=== PATIENT | female | born 1980 | race Caucasian/White ===

== ENCOUNTER 2018-12-12 10:37 | Emergency (ER) | payer OTHER ==
--- NOTE | 2018-12-12 12:35 | ED ---
Abdominal Pain/Female - HPI Summary HPI Summary: This patient is a 38 year old F presenting to [facility] accompanied by a male with a chief complaint of left flank that radiates to left ABD and lower back starting 3 days ago. She states the symptoms started after she began preparing for her endo/colonoscopy. She complains of black tarry stools with no blood. The patient rates the pain 10/10 in severity. Symptoms aggravated by nothing. Symptoms alleviated by nothing. The patient reported a fever and chills beginning 3 days ago as well as N/V/D beginning 2 days ago. She cancelled her tests due to her sickness. Patient reports decreased appetite, neck pain, lightheadedness, and RODRIGUEZ. She smokes and drinks, but denies drug use. She has FHx of diabetes and HTN from her father. She has no significant past MHx. - History of Current Complaint Chief Complaint: EDAbdPain Stated Complaint: LOW BACK PAIN FEVER PER PT Time Seen by Provider: 12/12/18 11:50 Hx Obtained From: Patient, Family/Shirt Trimmer - Onset/Duration: Lasting Days - 3, Still Present Timing: Days - 3 Severity Currently: Severe Pain Intensity: 10 Pain Scale Used: 0-10 Numeric Location: Flank - left Radiates: Yes Radiates to: Back, LLQ Aggravating Factor(s): Nothing Alleviating Factor(s): Nothing Associated Signs and Symptoms: Positive: Fever, Back Pain, Decreased Appetite, Nausea, Vomiting, Diarrhea, Other: - neck pain, lightheadedness. Negative: Blood in Stool Allergies/Adverse Reactions: Allergies Allergy/AdvReac Type Severity Reaction Status Date / Time Penicillins Allergy Swelling Verified 12/12/18 10:47 Home Medications: Home Medications RX: Cetirizine* [ZyrTEC 10 MG TAB*] 10 mg PO DAILY PRN 12/12/18 [History Confirmed 12/12/18] RX: Desvenlafaxine (NF) [Pristiq (NF)] 50 mg PO DAILY 12/12/18 [History Confirmed 12/12/18] RX: Escitalopram * [Lexapro *] 20 mg PO DAILY 12/12/18 [History Confirmed ] RX: Fexofenadine (NF) [Aicha 180 (NF)] 180 mg PO DAILY PRN 12/12/18 [History Confirmed 12/12/18] RX: OLANzapine TAB* [Zyprexa 10 MG TAB*] 15 mg PO DAILY 12/12/18 [History Confirmed 12/12/18] RX: Omeprazole (Nf) [Prilosec (NF)] 40 mg PO DAILY 12/12/18 [History Confirmed 12/12/18] RX: Prazosin CAP* [Minipress CAP*] 3 mg PO DAILY 12/12/18 [History Confirmed ] PMH/Surg Hx/FS Hx/Imm Hx Previously Healthy: No Endocrine/Hematology History: Denies: Hx Diabetes Cardiovascular History: Denies: Hx Hypercholesterolemia, Hx Hypertension Sensory History: Denies: Hx Legally Blind EENT History: Denies: Hx Deafness - Surgical History Surgical History: None Surgery Procedure, Year, and Place: none Infectious Disease History: No Infectious Disease History: Denies: Traveled Outside the [place] in Last 30 Days - Family History Known Family History: Positive: Hypertension - father has it, Diabetes - father has it - Social History Alcohol Use: Occasionally Hx Substance Use: No Substance Use Type: Reports: None Hx Tobacco Use: Yes Smoking Status (MU): Heavy Every Day Tobacco Smoker Review of Systems Positive: Fever, Chills Gastrointestinal: Other - decreased appetite Positive: Abdominal Pain - LLQ, Vomiting, Diarrhea, Nausea, Other - negative - blood in stool Positive: flank pain - left Positive: Other - low back and neck pain Neurological: Other - lightheadedness Positive: Headache All Other Systems Reviewed And Are Negative: Yes Physical Exam - Summary Physical Exam Summary: VITAL SIGNS: Reviewed. GENERAL: Patient is a well-developed and nourished FEMALE who is lying comfortable in the stretcher. Patient is not in any acute respiratory distress. HEAD AND FACE: No signs of trauma. No ecchymosis, hematomas or skull depressions. No sinus tenderness. EYES: PERRLA, EOMI x 2, No injected conjunctiva, no nystagmus. EARS: Hearing grossly intact. Ear canals and tympanic membranes are within normal limits. MOUTH: Oropharynx within normal limits. NECK: Supple, trachea is midline, no adenopathy, no JVD, no carotid bruit, no c- spine tenderness, neck with full ROM. CHEST: Symmetric, no tenderness at palpation LUNGS: Clear to auscultation bilaterally. No wheezing or crackles. CVS: Regular rate and rhythm, S1 and S2 present, no murmurs or gallops appreciated. ABDOMEN: Soft, left costovertebral tenderness. No signs of distention. No rebound no guarding, and no masses palpated. Bowel sounds are normal. EXTREMITIES: FROM in all major joints, no edema, no cyanosis or clubbing. NEURO: Alert and oriented x 3. No acute neurological deficits. Speech is normal and follows commands. SKIN: Dry and warm. Triage Information Reviewed: Yes Vital Signs On Initial Exam: Initial Vitals Temp Pulse Resp BP Pulse Ox 100.4 F 132 18 114/69 96 12/12/18 10:43 12/12/18 10:43 12/12/18 10:43 12/12/18 10:43 12/12/18 10:43 Vital Signs Reviewed: Yes Diagnostics - Vital Signs Vital Signs Temp Pulse Resp BP Pulse Ox 12/12/18 12:00 100 96 12/12/18 11:49 101 115/69 96 12/12/18 11:48 100 96 12/12/18 10:43 100.4 F 132 18 114/69 96 - Laboratory Result Diagrams: 12/12/18 12:58 12/12/18 12:58 Lab Statement: Any lab studies that have been ordered have been reviewed, and results considered in the medical decision making process. - CT ABD/PELVIS CT Interpretation Completed By: Radiologist Summary of CT Findings: IMPRESSION: 1. MINIMAL PERINEPHRIC STRANDING ON THE LEFT WITHOUT APPRECIABLE HYDRONEPHROSIS OR. NEPHROLITHIASIS. 2. HEPATOMEGALY WITH FATTY INFILTRATION OF THE LIVER. These findings were reviewed by Dr. Pink. Re-Evaluation - Re-Evaluation First Eval Re-Evaluation Time: 14:45 Comment: I discussed findings with the patient. Patient is agreeable to being discharged home. Abdominal Pain Fem Course/Dx - Course Course Of Treatment: This patient is a 38 year old F presenting to [facility] accompanied by a male with a chief complaint of left flank that radiates to left ABD and lower back starting 3 days ago. She states the symptoms started after she began preparing for her endo/colonoscopy. She complains of black tarry stools with no blood. The patient rates the pain 10/10 in severity. Symptoms aggravated by nothing. Symptoms alleviated by nothing. The patient reported a fever and chills beginning 3 days ago as well as N/V/D beginning 2 days ago. She cancelled her tests due to her sickness. Patient reports decreased appetite, neck pain, lightheadedness, and RODRIGUEZ. She smokes and drinks, but denies drug use. She has FHx of diabetes and HTN from her father. She has no significant past MHx. Blood work without any significant abnormality except for WBCs of 16.8, sodium of 131, potassium of 3, chloride of 97, anion gap of 12 , glucose of 174, total bili of 1.2, AST of 41, CRP of 395, test is negative. Urinalysis is positive for UTI. In the ED course, the patient was given IV fluids, Tylenol for fever, and she was started on Rocephin since the patient has a UTI, which is probably the cause of her symptoms. After the patient was given medications, the patients symptoms have improved. The patient will be discharged home with follow-up with primary care physician in the next 2-3 days. The patient will be given a prescription for Bactrim. Abdominopelvic CT impression: Minimal perinephric stranding of the left without appreciable hydronephrosis or nephrolithiasis. Hepatomegaly with fatty infiltration of the liver. I discussed all the findings and test results with the patient. Patient was instructed to return to the emergency room immediately if any of the symptoms return or worsens. Plan of care was discussed with the patient. Patient understands and agrees. All questions were answered to the patients satisfaction. There were no further complaints or concerns. Lung exam before discharge: CTA B/L. Good air exchange. No wheezing or crackles heard. CVS: S1 and S2 present. No murmurs appreciated. Patient is alert and oriented x 3. Patient is hemodynamically stable. Patient will be discharged home with follow up PCP in the next 2-3 days. - Diagnoses Provider Diagnoses: UTI (urinary tract infection), Pyelonephritis Discharge - Sign-Out/Discharge Documenting (check all that apply): Patient Departure - Patient will be discharged home. Patient Received Moderate/Deep Sedation with Procedure: No - Discharge Plan Condition: Stable Disposition: HOME Prescriptions: Sulfamethox/Trimethoprim DS* [Bactrim DS 800/160 TAB*] 1 tab PO BID #20 tab Patient Education Materials: Urinary Tract Infection in Women (DC), Kidney Infection (ED) Referrals: Josue Mcneal NP [Primary Care Provider] - 3 Days Additional Instructions: Please take medications as prescribed. Follow up with your primary care provider in 2-3 days. RETURN TO THE EMERGENCY DEPARTMENT FOR ANY NEW OR WORSENING SYMPTOMS. - Attestation Statements Document Initiated by Scribe: Yes Documenting Scribe: Andreas Albarado Provider For Whom Andrea is Documenting (Include Credential): Dr. Jony Pink MD Scribe Attestation: IAndreas, scribed for Dr. Jony Pink MD on 12/12/18 at 1556. Status of Scribe Document: Ready
[2018-12-12 13:08] LABS: ABS Lymphocytes 1.2 10^3/ul (1.0-4.8); ABS Monocytes 0.9 10^3/ul (0-0.8); ABS Neutrophils 14.7 10^3/ul (1.5-7.7); Hematocrit 41 % (35-47); Hemoglobin 14.2 g/dL (12.0-16.0); Lymphocyte % 6.9 %; Mean Corpuscular HGB Conc 34 g/dL (31-36); Mean Corpuscular Hemoglobin 31 pg (27-31); Mean Corpuscular Volume 91 fL (80-97); Mean Platelet Volume 7.6 fL (7.4-10.4); Platelet Count 294 10^3/uL (150-450); Red Blood Count 4.55 10^6 /uL (3.70-4.87); Red Cell Distribution Width 14 % (10-15); White Blood Count 16.8 10^3/uL (3.5-10.8)
[2018-12-12] MEDS: Ketorolac INJ* 30 MG/ML 1 ML VIAL IV PUSH ONE (13:10)
[2018-12-12] MEDS: NS 0.9% 1000 ML** 1,000 ML IV ONE (13:10)
[2018-12-12 13:18] LABS: Urine Appearance Cloudy; Urine Bacteria 1+ (Absent); Urine Bilirubin Negative (Negative); Urine Blood 3+ (Negative); Urine Color Amber; Urine Glucose 3+(>=500 mg/dL) (Negative); Urine Ketones Negative (Negative); Urine Nitrite Positive (Negative); Urine Protein 2+(100 mg/dL) (Negative); Urine Red Blood Cell 3+(>10/hpf) (Absent); Urine Specific Gravity 1.024 (1.010-1.030); Urine Squamous Epithelial Cell Present (Absent); Urine Urobilinogen Negative (Negative); Urine White Blood Cell 3+(>20/hpf) (Absent)
[2018-12-12 13:35] LABS: ALT 43 U/L (7-52); AST 41 U/L (13-39); Albumin 4.4 g/dL (3.2-5.2); Albumin/Globulin Ratio 1.2 (1-3); Alkaline Phosphatase 81 U/L (34-104); Amylase 21 U/L (29-103); Anion Gap 12 mmol/L (2-11); BUN/Creatinine Ratio 13.5 (8-20); Blood Urea Nitrogen 10 mg/dL (6-24); C Reactive Protein 395.83 mg/L (<8.01); CO2 Carbon Dioxide 22 mmol/L (22-32); Calcium 9.8 mg/dL (8.6-10.3); Chloride 97 mmol/L (101-111); Creatine Kinase 72 U/L (10-223); EGFR African American 105.7 (>60); EGFR Non-African American 87.4 (>60); Globulin 3.8 g/dL (2-4); Glucose 174 mg/dL (70-100); Sodium 131 mmol/L (135-145); Total Protein 8.2 g/dL (6.4-8.9)
[2018-12-12 13:39] LABS: HCG Pregnancy < 0.60 mIU/mL
[2018-12-12] MEDS: cefTRIAXone(*) 1 GM in NS 0.9% 50 ML* 50 ML IVPB ONE (13:59)
[2018-12-12] MEDS: Acetaminophen TAB* 325 MG PO ONE (14:15)
[2018-12-12] MEDS: Potassium Chlor TAB* 20 MEQ TAB.ER PO ONE (14:15)
[2018-12-12 15:47] VITALS: BP 100/66
--- NOTE | 2018-12-13 08:09 | PN ---
Progress Note - Progress Note Date of Service: 12/12/18 Note: Called patient's a 7:50 AM to make aware of blood culture results Anaerobic culture bottle preliminary grew gram-negative bacilli Patient endorses continuing symptoms Discussed the importance of her return to the ED Patient states she agrees and will come back to ED
== END 2018-12-12 15:45 | disposition home or self-care (01) ==
LOC: ED 10:37
DX: N39.0 Urinary tract infection, site not specified (principal); N12 Tubulo-interstitial nephritis, not specified as acute or chronic; K76.0 Fatty (change of) liver, not elsewhere classified; F17.210 Nicotine dependence, cigarettes, uncomplicated; Z79.899 Other long term (current) drug therapy
CPT/HCPCS: 36415; 74176; 80053; 81003; 81015; 82150; 82550; 83605; 83690; 84702; 85025; 86140; 87040; 87077; 87086; 87186; 87205; 96361; 96365; 96375; 99283; A9270-GY; J0696; J1885

== ENCOUNTER 2018-12-13 09:30 | Inpatient (IN) | payer OTHER ==
--- OUTSIDE RECORDS SUMMARY | 2018-12-13 10:02 | XMS REPORT | Continuity of Care Document ---
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 Luz Marina Colmenares NP Onset: 2018 Social History Type Date Description Comments Sex Unknown Home Environment Has central air Home Environment The floors are carpeted Home Environment The floors are tile Home Environment Uses forced air heating Smoke-Free Home is smoke-free Pets None Tobacco Use Start: Unknown Light tobacco smoker (10 or fewer cigarettes/day) Allergies, Adverse Reactions, Alerts Active Allergies Reaction Severity Comments Date Penicillin 11/16/2018 Medications Active Medications SIG Qnty Indications Ordering Date Provider Elimite apply to skin 1unamparo Colmenares, 11/16/2018 5% Cream from jaw line to PLUNGER SCOOP OPERATOR feet. Zyrtec Allergy one tablet by 30tabs Luz Marina Colmenares, 11/16/2018 10mg mouth every PLUNGER SCOOP OPERATOR Tablets Dispers evening Hydrocortisone apply to 1unamparo Colmenares, 11/16/2018 Intensive Healing afffected area PLUNGER SCOOP OPERATOR 1% twice a day Cream Omeprazole Kwan Alegria DO 40mg Capsules DR Venlafaxine HCL ER Unknown 75mg Caps ER 24HR Prazosin HCL Unknown 1mg Capsules Escitalopram Oxalate Unknown 20mg Tablets Olanzapine Unknown 15mg Tablets Vital Signs Date Vital Result Comment 11/16/2018 9:36am BP Systolic 124 mmHg BP Diastolic 70 mmHg Height 57.5 inches 4'9.50" Weight 145.00 lb BMI (Body Mass Index) 30.8 kg/m2 Heart Rate 77 /min Respiratory Rate 20 /min Body Temperature 98.6 F O2 % BldC Oximetry 97 % Encounters Type Date Location Provider Dx Diagnosis Office Visit 11/16/2018 9:30a [place] Luz Marina Colmenares NP [id number] Scabies Plan of Treatment Future Appointment(s):12/21/2018 10:30 am - Luz Marina Colmenares NP at [id number] - Luz Marina Colmenares NPB86 ScabiesComments:Patient presents with complaints of itchy rash. No rashes or approaching 3 manners infectious, autoimmune, and/or allergic. She has a lot of tattoos so was very difficult to assess these skin on her arms. But given the linear pattern, and origin between the finger webs I think the most logical approach is to treat for scabies. I did prescribe Elimite I reviewed with her to put and from the jaw tothe soles of the feet weight 14 hours shower. She may continue to have some itching I prescribed Zyrtec 10 mg at bedtime, and some topical hydrocortisone cream to be used twice a day on only the areasthat are most itchy after she is treated. I discussed with them to clean all bed linen and beds wash in hot water try and help core drier. And I would have her follow up in a week for reevaluation to see if the symptoms have resolved.If the symptoms have not resolved we will do a urticaria workup.
--- OUTSIDE RECORDS SUMMARY | 2018-12-13 10:02 | XMS REPORT | Continuity of Care Document ---
:1980 External Reference #:[id number] Author Name Alanna Rodriguez Care Team Providers Name Role Phone Kwan Alegria DO Care Team Information Barrel Rifler Unavailable Kwan Alegria DO Primary Care Physician Unavailable Payers Date Identification Numbers Payment Provider Subscriber Policy Number: [id number] [facility] Cielo Alfaro PayID: [id number] [address] [place] [address] Problems Active Problems Provider Date Infestation by [...] 11/16/2018 5% Cream from jaw line to FOOD SERVICE CASHIER feet. Zyrtec Allergy one tablet by 30tabs Luz Marina Colmenares, 11/16/2018 10mg mouth every FOOD SERVICE CASHIER Tablets Dispers evening Hydrocortisone apply to 1unamparo Colmenares, 11/16/2018 Intensive Healing afffected area FOOD SERVICE CASHIER 1% twice a day Cream Omeprazole Kwan [...] Provider Dx Diagnosis Office Visit 11/16/2018 9:30a [place] Luz Marina Colmenares NP [id number] Scabies Plan of Treatment Future Appointment(s):12/21/2018 10:30 am - Luz Marina Colmenares NP at [id number] - Luz Marina Colmenares NPB86 ScabiesComments:Patient presents [...] wash in hot water try and help drier operator. And I would have her follow up in a week for reevaluation to see if the symptoms have resolved.If the symptoms have not resolved we will do a urticaria workup.
--- NOTE | 2018-12-13 10:25 | ED ---
Abdominal Pain/Female - HPI Summary HPI Summary: This patient is a 38 year old F presenting to [facility] accompanied by her with a chief complaint of flank pain. The pt was instructed to return after she had a positive blood culture. The pt states that she has extreme flank pain and a headache. She has begun vomiting and feeling nauseous as well. Pt state that her L side is more tender than her right. The pain is rated a 10/10 in severity. She also reports a fever, N/V/D, dehydration, and decreased appetite since 12/09/18. The blood culture showed that she had an infection of her kidneys. The infection has begun to enter the blood stream. Her symptoms are aggravated and alleviated by nothing. - History of Current Complaint Chief Complaint: EDFlankPain Stated Complaint: ABNORAML LAB WORK PER PT Time Seen by Provider: 12/13/18 10:16 Hx Obtained From: Patient Onset/Duration: Sudden Onset - monday12/09/18, Lasting Days, Still Present, Worse Since Timing: Constant Severity Initially: Moderate Severity Currently: Severe Pain Intensity: 10 Pain Scale Used: 0-10 Numeric Location: Flank - worse on the L side Aggravating Factor(s): Nothing Alleviating Factor(s): Nothing Associated Signs and Symptoms: Positive: Fever, Decreased Appetite, Nausea, Vomiting, Diarrhea, Other: - POSITIVE: headache, dehydration, abdominal pain Allergies/Adverse Reactions: Allergies Allergy/AdvReac Type Severity Reaction Status Date / Time Penicillins Allergy Swelling Verified 12/13/18 11:01 PMH/Surg Hx/FS Hx/Imm Hx Previously Healthy: No Endocrine/Hematology History: Denies: Hx Diabetes Cardiovascular History: Denies: Hx Hypercholesterolemia, Hx Hypertension Sensory History: Denies: Hx Legally Blind, Hx Deafness Opthamlomology History: Denies: Hx Legally Blind - Surgical History Surgery Procedure, Year, and Place: none Infectious Disease History: No Infectious Disease History: Denies: Traveled Outside the [place] in Last 30 Days - Family History Known Family History: Positive: Hypertension - father has it, Diabetes - father has it - Social History Alcohol Use: Occasionally Hx Substance Use: No Substance Use Type: Reports: None Hx Tobacco Use: Yes Smoking Status (MU): Heavy Every Day Tobacco Smoker Review of Systems Positive: Fever Positive: Abdominal Pain, Vomiting, Diarrhea, Nausea Positive: flank pain Positive: Headache All Other Systems Reviewed And Are Negative: Yes Physical Exam - Summary Physical Exam Summary: Appearance: Well-appearing, Well-nourished, lying in bed comfortably Skin: Warm, dry, no obvious rash Eyes: sclera anicteric, no conjunctival pallor ENT: mucous membranes moist, pharynx appears normal Neck: Supple, nontender Respiratory: Clear to auscultation, no signs of respiratory distress Cardiovascular: Normal S1, S2. No murmurs. Normal distal pulses in tibial and radial bilaterally. Abdomen: Soft, nontender, normal active bowel sounds present Musculoskeletal: Normal, Strength/ROM Intact Neurological: A&Ox3, awake and alert, mentation is normal, speech is fluent and appropriate Psychiatric: affect is normal, does not appear anxious or depressed Triage Information Reviewed: Yes Vital Signs On Initial Exam: Initial Vitals Temp Pulse Resp BP Pulse Ox 98.0 F 107 18 110/66 98 12/13/18 09:32 12/13/18 09:32 12/13/18 09:32 12/13/18 09:32 12/13/18 09:32 Vital Signs Reviewed: Yes Diagnostics - Vital Signs Vital Signs Temp Pulse Resp BP Pulse Ox 12/13/18 09:32 98.0 F 107 18 110/66 98 - Laboratory Result Diagrams: 12/13/18 10:51 12/13/18 10:51 Lab Statement: Any lab studies that have been ordered have been reviewed, and results considered in the medical decision making process. Re-Evaluation - Re-Evaluation First Eval Re-Evaluation Time: 10:31 Change: Unchanged Comment: The pt was informed that she will be admitted to the hospital for further care. Her and her are agreeable to the admittance plan. Abdominal Pain Fem Course/Dx - Course Course Of Treatment: This patient is a 38 year old F presenting to [facility] accompanied by her with a chief complaint of flank pain. The pt was instructed to return after she had a positive blood culture. The pt states that she has extreme flank pain and a headache. Upon PE the pt has no abnormal findings. She has abnormal lab values in WBC, Absolute Neuts, AST, ALT, Glucose. She was given ABX Cipro 400 mg, Rocephin, Morphine 4 mg, and Zofran during ED course. . She received a blood culture on her last visit that was positive for bacterial pyleonephritis of the L kidney and she will be [place] [facility] [place] further care by Dr. Blackwell, hospitalist. - Diagnoses Provider Diagnoses: Pyelonephritis of left kidney - Provider Notifications Discussed Care Of Patient With: Yaquelin Blackwell Time Discussed With Above Provider: 10:31 Instructed by Provider To: Admit As Inpatient Discharge - Sign-Out/Discharge Documenting (check all that apply): Patient Departure - admitted Patient Received Moderate/Deep Sedation with Procedure: No - Discharge Plan Condition: Stable Disposition: ADMITTED TO [facility] - Billing Disposition and Condition Condition: STABLE Disposition: Admitted to [facility] - Attestation Statements Document Initiated by Scribe: Yes Documenting Scribe: Russel Chau Provider For Whom Scribe is Documenting (Include Credential): Shaun Stuart Attestation: Russel Mchugh, cynthiaed for Shaun Armenta on 12/13/18 at 1311. Scribe Documentation Reviewed: Yes Provider Attestation: The documentation as recorded by the Russel stuart accurately reflects the service I personally performed and the decisions made by Shaun graahm Status of Scribe Document: Viewed
[2018-12-13] MEDS ORDERED: NS 0.9% 1000 ML** 1,000 ML IV.FLUID IV ONE (10:32)
[2018-12-13] MEDS ORDERED: Ciprofloxacin 400MG IVPREMIX(* 400 MG/200 ML BAG IVPB ONE (10:32)
[2018-12-13] MEDS ORDERED: Ondansetron INJ* 2 MG/ML VIAL IV ONE (10:34)
[2018-12-13] MEDS ORDERED: Morphine 4 MG/ML VIAL (1 ml) 4 MG/ML VIAL IV ONE (10:34)
[2018-12-13 11:00] LABS: ABS Lymphocytes 1.1 10^3/ul (1.0-4.8); ABS Monocytes 0.8 10^3/ul (0-0.8); ABS Neutrophils 13.2 10^3/ul (1.5-7.7); Eosinophil % 0.1 %; Hematocrit 38 % (35-47); Hemoglobin 12.8 g/dL (12.0-16.0); Lymphocyte % 7.6 %; Mean Corpuscular HGB Conc 33 g/dL (31-36); Mean Corpuscular Hemoglobin 31 pg (27-31); Mean Corpuscular Volume 92 fL (80-97); Mean Platelet Volume 8.1 fL (7.4-10.4); Platelet Count 264 10^3/uL (150-450); Red Blood Count 4.15 10^6 /uL (3.70-4.87); Red Cell Distribution Width 14 % (10-15); White Blood Count 15.2 10^3/uL (3.5-10.8)
[2018-12-13] MEDS ORDERED: Al Hydrox/Mg Hydrox/Simet LIQ* 30 ML UDC PO PRN (11:11)
[2018-12-13] MEDS ORDERED: Cetirizine* 10 MG TAB PO PRN (11:14)
[2018-12-13] MEDS ORDERED: NS 0.9% 1000 ML** 1,000 ML IV SCH (11:15)
[2018-12-13] MEDS ORDERED: PROCHLORPERAZINE INJ 5 MG/ML 2 ML VIAL IV PRN (11:16)
[2018-12-13 11:25] LABS: Albumin 3.8 g/dL (3.2-5.2); Albumin/Globulin Ratio 1.1 (1-3); BUN/Creatinine Ratio 19.4 (8-20); Calcium 8.9 mg/dL (8.6-10.3); EGFR African American 109.1 (>60); EGFR Non-African American 90.2 (>60); Globulin 3.6 g/dL (2-4); Potassium 3.4 mmol/L (3.5-5.0); Total Protein 7.4 g/dL (6.4-8.9)
[2018-12-13 13:00] LABS: Urine Appearance Clear; Urine Bacteria 1+ (Absent); Urine Bilirubin Negative (Negative); Urine Blood 3+ (Negative); Urine Color Yellow; Urine Glucose 2+(150 mg/dL) (Negative); Urine Ketones Trace (Negative); Urine Nitrite Negative (Negative); Urine Protein Negative (Negative); Urine Red Blood Cell 3+(>10/hpf) (Absent); Urine Specific Gravity 1.014 (1.010-1.030); Urine Squamous Epithelial Cell Present (Absent); Urine Urobilinogen Negative (Negative); Urine White Blood Cell 1+(6-10/hpf) (Absent)
--- NOTE | 2018-12-13 13:00 | HP ---
HISTORY AND PHYSICAL: DATE OF ADMISSION: 12/13/18 PRIMARY CARE PROVIDER: None. CHIEF COMPLAINT: Left flank pain. The patient was also called in to come into the ED due to abnormal blood work. HISTORY OF PRESENT ILLNESS: Cielo Trejo is a 38-year-old female with history of further undescribed psychiatric illness who was diagnosed with pyelonephritis yesterday in this emergency department. The patient was given Bactrim and discharged home. Unfortunately, she has had problems with nausea and was unable to use the Bactrim, she took only 1 dose. Also, her blood cultures turned out to be positive for gram-negative bacilli. The patient was called to come back to the ED for evaluation. The patient herself stated that she is in a lot of pain in the left flank. She is originally from [place] and immigrated to the approximately 5 years ago. She is here with her boyfriend, Dewayne who is translating. The patient herself does not speak a word of Chadian. PAST MEDICAL HISTORY: The patient basically stated that she is in too much pain to be able to remember anything. She cannot elaborate on her own when I questioned her about psychiatric illnesses due to her being on medications for a psychiatric illness. She stated that when she was a child, a doctor told her that she has problems with white blood cells and red blood cells, but she is not aware what it was and she is not aware if that resolved. MEDICATIONS: Include: 1. Bactrim DS one tablet b.i.d. 2. Prazosin 3 mg daily. 3. Omeprazole 40 mg daily. 4. Zyprexa 15 mg daily. 5. Aicha 180 mg daily p.r.n. 6. Lexapro 20 mg daily. 7. Pristiq 50 mg daily. 8. Zyrtec 10 mg daily p.r.n. ALLERGIES: PENICILLIN caused swelling. FAMILY HISTORY: Positive for diabetes and hypertension in father. SOCIAL HISTORY: The patient smokes up to 4 packs of cigarettes per day and she started smoking when she was a teenager. She used to abuse alcohol up to 5 years ago when she quit and she has not used any alcohol since. The patient herself denies any history of drug use. She lives with her boyfriend, Dewayne, and she chooses him to be her surrogate. His name is Dewayne Vázquez. His phone number is [phone]. REVIEW OF SYSTEMS: Positive for pain in the left flank. Positive for fevers for the past 3 days. Positive for nausea. All the remaining 12 systems were reviewed with the patient and were otherwise negative. PHYSICAL EXAMINATION GENERAL: The patient is a pleasant 38-year-old female who is Lao speaking only. The patient is in no acute distress. She is alert and oriented x3. She appears to be anxious and irritable. VITAL SIGNS: Blood pressure of 106/64, heart rate of 101 and regular, respiratory rate 23, oxygen saturation 99% on room air, temperature is 98.0. HEENT: Head atraumatic and normocephalic. Eyes: Pupils are equal, round, and reactive to light and accommodation. Oropharynx is clear. Mucosa moist. NECK: Supple. No JVD. No bruits bilaterally. RESPIRATORY: Clear to auscultation bilaterally. CARDIOVASCULAR: Regular rate and rhythm. No murmur. ABDOMEN: Soft. flank with no rebound and no guarding. Bowel sounds are present in all 4 quadrants. EXTREMITIES: There is no edema. Pulses are +2 bilaterally. No clubbing or cyanosis. NEUROLOGIC: Speech clear. Cranial nerves II through XII grossly intact. Motor strength is 5/5 bilaterally. SKIN: On evaluation of the skin, the patient has multiple large tattoos with no evidence of infection or ecchymotic areas. LABORATORY DATA: Today's laboratory data is still pending. Yesterday's laboratory data showed a sodium of 131, potassium 3.0, chloride 97, carbon- dioxide 22, BUN 10, creatinine 0.74. Liver function tests: Bilirubin 1.2, AST of 41, ALT of 43. C- reactive protein was 395. Beta HCG was . Lactic acid was 2. CBC yesterday showed white blood cell count of 16.8, hemoglobin of 14.2, hematocrit of 41, and platelets of 294,000. Urinalysis was grossly positive with +3 wbc's and rbc's; +3 esterase; +3 nitrites. IMAGING: CT of the abdomen and pelvis obtained on 12/12/18: Impression: "Minimal perinephric stranding of the left without appreciable hydronephrosis or nephrolithiasis. Hepatomegaly with fatty infiltration of the liver. The patient's blood cultures from yesterday show gram-negative bacilli and urine cultures were positive for E. Coli. Sensitivity is pending. ASSESSMENT AND PLAN: 1. The patient is septic due to left-sided pyelonephritis. She also has likely E. Coli bacteremia. She received 1 dose of ciprofloxacin, but due to the patient being under psychotics, she is going to be placed on ceftriaxone. Repeated blood cultures were reobtained. I will place the patient on intravenous hydration. 2. In regards to the patient's further undescribed psychiatric illness, her antipsychotic medications and antidepressants are going to be continued as at home. 3. For DVT prophylaxis, the patient is low risk. Ambulation is going to be encouraged. TIME SPENT: Approximately 55 minutes were spent on the admission of this patient, more than half that time was spent [id number] with the patient during the interview and physical exam. [id number]/[facility] #: [id number] MTDD
[2018-12-13] MEDS: KCL 20 MEQ/100 ML IVPREMIX* 20 MEQ/100 ML BAG IV SCH ×2 (14:12→16:14)
[2018-12-13] MEDS: Ketorolac INJ* 15 MG/ML 1 ML VIAL IV PUSH PRN ×2 (15:45→20:50)
[2018-12-13] MEDS: Acetaminophen TAB* 325 MG PO PRN ×2 (16:53→20:07)
[2018-12-13] MEDS: Ondansetron INJ* 2 MG/ML VIAL IV PRN ×2 (17:01→20:30)
[2018-12-13] MEDS: cefTRIAXone(*) 1 GM in NS 0.9% 50 ML* 50 ML IVPB SCH (20:21)
[2018-12-13] MEDS: Docusate CAP* 100 MG PO SCH (20:31)
[2018-12-13] MEDS ORDERED: Nicotine* 2MG (FRUIT FLAVOR) GUM PO PRN (21:25)
[2018-12-13] MEDS ORDERED: LORazepam TAB(*) 0.5 MG PO ONE (23:01)
[2018-12-13] MEDS ORDERED: Calcium Carbonate CHEW TAB* 500 MG (TUMS) PO PRN (23:01)
[2018-12-13] MEDS: Nicotine PATCH 21 MG/24 HR* PATCH TRANSDERM SCH (23:08)
[2018-12-14] MEDS: Ketorolac INJ* 15 MG/ML 1 ML VIAL IV PUSH PRN (02:59)
[2018-12-14] MEDS: Prazosin CAP* 1 MG PO SCH (08:06)
[2018-12-14] MEDS: Pantoprazole TAB * 40 MG TAB PO SCH (08:06)
[2018-12-14] MEDS: Escitalopram * 20 MG TABLET PO SCH (08:06)
[2018-12-14] MEDS: Docusate CAP* 100 MG PO SCH ×2 (08:06→20:42)
[2018-12-14] MEDS: CMC:Desvenlafaxine (NF) 50 MG TAB PO SCH (08:06)
[2018-12-14] MEDS: OLANzapine TAB* 10 MG PO SCH (08:06)
[2018-12-14] MEDS: Ondansetron INJ* 2 MG/ML VIAL IV PRN (11:12)
[2018-12-14 11:27] LABS: ABS Lymphocytes 1.5 10^3/ul (1.0-4.8); ABS Monocytes 0.6 10^3/ul (0-0.8); ABS Neutrophils 6.1 10^3/ul (1.5-7.7); Eosinophil % 0.3 %; Hematocrit 32 % (35-47); Hemoglobin 11.2 g/dL (12.0-16.0); Lymphocyte % 17.8 %; Mean Corpuscular HGB Conc 35 g/dL (31-36); Mean Corpuscular Hemoglobin 32 pg (27-31); Mean Corpuscular Volume 91 fL (80-97); Mean Platelet Volume 7.9 fL (7.4-10.4); Nucleated Red Blood Cells % 0.1; Platelet Count 247 10^3/uL (150-450); Red Blood Count 3.55 10^6 /uL (3.70-4.87); Red Cell Distribution Width 14 % (10-15); White Blood Count 8.3 10^3/uL (3.5-10.8)
[2018-12-14 11:44] LABS: BUN/Creatinine Ratio 16.7 (8-20); Calcium 8.3 mg/dL (8.6-10.3); EGFR African American 134.7 (>60); EGFR Non-African American 111.3 (>60); Potassium 3.9 mmol/L (3.5-5.0)
--- NOTE | 2018-12-14 16:37 | PN ---
Subjective Date of Service: 12/14/18 Interval History: Patient was seen first thing in the morning secondary to being frustrated wanting to leave AMA stating "no body told her anything and she does not know any of what is going on..."! patient was seen this am with the presence of her significant other and her nurse in the room who assisted in translation as the patient does not speak the Khmer language and I did rely on her significant other to help translate. I was able to calm the patient down and explained to her via translation that she does have bacteremia and the most likely source is her Urine and will require repeat BC. Once BC confirmed negative she will be discharged Past Medical History: Unchanged from Admission Objective Active Medications: Acetaminophen (Tylenol Tab*) 650 mg PO Q4H PRN PRN Reason: FEVER/PAIN Last Admin: 12/13/18 20:07 Dose: 650 mg Al Hydrox/Mg Hydrox/Simethicone (Maalox Plus*) 30 ml PO Q6H PRN PRN Reason: INDIGESTION Calcium Carbonate (Tums*) 500 mg PO Q4H PRN PRN Reason: INDIGESTION Last Admin: 12/13/18 23:08 Dose: 500 mg Cetirizine HCl (Zyrtec*) 10 mg PO DAILY PRN PRN Reason: Allergy Symptoms Desvenlafaxine Succinate (Pristiq (Nf)) 50 mg PO DAILY [facility] Last Admin: 12/14/18 08:06 Dose: 50 mg Docusate Sodium (Colace Cap*) 100 mg PO BID [facility] Last Admin: 12/14/18 08:06 Dose: Not Given Escitalopram Oxalate (Lexapro *) 20 mg PO DAILY [facility] Last Admin: 12/14/18 08:06 Dose: 20 mg Ceftriaxone Sodium 1 gm/ (Sodium Chloride) 50 mls @ 200 mls/hr IVPB Q24H [facility] Last Admin: 12/13/18 20:21 Dose: 200 mls/hr Ketorolac Tromethamine (Toradol Inj*) 15 mg IV PUSH Q6H PRN PRN Reason: PAIN Last Admin: 12/14/18 02:59 Dose: 15 mg Nicotine (Nicotine Patch 21 Mg/24 Hr*) 1 patch TRANSDERM DAILY@2200 [facility] Last Admin: 12/13/18 23:08 Dose: 1 patch Nicotine Polacrilex (Nicotine Gum*) 2 mg PO Q2H PRN PRN Reason: CRAVING Olanzapine (Zyprexa Tab*) 15 mg PO DAILY [facility] Last Admin: 12/14/18 08:06 Dose: 15 mg Ondansetron HCl (Zofran Inj*) 4 mg IV Q4H PRN PRN Reason: NAUSEA/VOMITING Last Admin: 12/14/18 11:12 Dose: 4 mg Pantoprazole Sodium (Protonix Tab*) 40 mg PO DAILY [facility] Last Admin: 12/14/18 08:06 Dose: 40 mg Pharmacy Profile Note (Nicotine Patch Removal Note*) 1 note FOLLOW UP 2100 [address] Prazosin HCl (Minipress Cap*) 3 mg PO DAILY [facility] Last Admin: 12/14/18 08:06 Dose: 3 mg Prochlorperazine Edisylate (Compazine Inj*) 5 mg IV Q6H PRN PRN Reason: NAUSEA/VOMITING Vital Signs - 8 hr 12/14/18 12/14/18 12:13 15:41 Temperature 98.5 F 98.2 F Pulse Rate 88 80 Respiratory 20 18 Rate Blood Pressure 104/62 108/58 (mmHg) O2 Sat by Pulse 95 97 Oximetry Oxygen Devices in Use Now: None Appearance: awake, ambulating. no distress Eyes: No Scleral Icterus, - - EOMI Ears/Nose/Mouth/Throat: NL Teeth, Lips, Gums Neck: NL Appearance and Movements; NL JVP, Trachea Midline Respiratory: Symmetrical Chest Expansion and Respiratory Effort Neurological: NL Gait, NL Muscle Strength and Tone Result Diagrams: 12/14/18 11:08 12/14/18 11:08 Microbiology and Other Data: Microbiology 12/13/18 10:51 Aerobic Blood Culture - Preliminary Blood Venous No Growth Day 1 Anaerobic Blood Culture - Preliminary No Growth Day 1 12/13/18 10:51 Aerobic Blood Culture - Preliminary Blood Venous No Growth Day 1 Anaerobic Blood Culture - Preliminary No Growth Day 1 Assess/Plan/Problems-Billing Assessment: 38 y/o female admitted for UTI and E-Coli bacteremia. on IV ceftriaxone pending repeat BC to ensure sterility of her BC - Patient Problems (1) Pyelonephritis Current Visit: Yes Status: Acute Code(s): N12 - TUBULO-INTERSTITIAL NEPHRITIS, NOT SPCF ACUTE OR CHRONIC SNOMED Code(s): 75316488 Comment: - Left sided Pyelonephritis from her ER CT scan done on prior visit secondary to UIT and E-coli bacteremia - On ceftriaxone IV pending repeat blood cultures (2) Bacteremia Current Visit: Yes Status: Acute Code(s): R78.81 - BACTEREMIA SNOMED Code( s): 4311144 Comment: - E-coli on Ceftriaxone (3) Depression Current Visit: Yes Status: Acute Code(s): F32.9 - MAJOR DEPRESSIVE DISORDER , SINGLE EPISODE, UNSPECIFIED SNOMED Code(s): 46404315 Comment: - Continue zyprexa, Prazosin and lexapro
[2018-12-14] MEDS: Acetaminophen TAB* 325 MG PO PRN (16:58)
[2018-12-14] MEDS: Nicotine PATCH 21 MG/24 HR* PATCH TRANSDERM SCH (20:40)
[2018-12-14] MEDS: cefTRIAXone(*) 1 GM in NS 0.9% 50 ML* 50 ML IVPB SCH (20:42)
[2018-12-14] MEDS ORDERED: Nicotine Patch Removal NOTE FOLLOW UP SCH (21:00)
[2018-12-15] MEDS: Ketorolac INJ* 15 MG/ML 1 ML VIAL IV PUSH PRN ×2 (00:03→07:53)
[2018-12-15 06:48] LABS: ABS Eosinophils 0.1 10^3/ul (0-0.6); ABS Lymphocytes 2.6 10^3/ul (1.0-4.8); ABS Monocytes 0.6 10^3/ul (0-0.8); ABS Neutrophils 3.5 10^3/ul (1.5-7.7); Eosinophil % 1.4 %; Hematocrit 33 % (35-47); Hemoglobin 11.5 g/dL (12.0-16.0); Lymphocyte % 37.7 %; Mean Corpuscular HGB Conc 35 g/dL (31-36); Mean Corpuscular Hemoglobin 32 pg (27-31); Mean Corpuscular Volume 92 fL (80-97); Mean Platelet Volume 7.9 fL (7.4-10.4); Nucleated Red Blood Cells % 0.2; Platelet Count 263 10^3/uL (150-450); Red Blood Count 3.65 10^6 /uL (3.70-4.87); Red Cell Distribution Width 14 % (10-15); White Blood Count 6.8 10^3/uL (3.5-10.8)
[2018-12-15 07:08] LABS: Albumin 3.3 g/dL (3.2-5.2); Albumin/Globulin Ratio 1.1 (1-3); Calcium 8.8 mg/dL (8.6-10.3); EGFR African American 132.1 (>60); EGFR Non-African American 109.2 (>60); Globulin 2.9 g/dL (2-4); Indirect Bilirubin 0.2 mg/dL (0.3-1.0); Magnesium 2.1 mg/dL (1.9-2.7); Phosphorus 2.9 mg/dL (2.5-5.0); Potassium 3.9 mmol/L (3.5-5.0); Total Bilirubin 0.3 mg/dL (0.2-1.0); Total Protein 6.2 g/dL (6.4-8.9)
[2018-12-15] MEDS: OLANzapine TAB* 10 MG PO SCH (07:57)
[2018-12-15] MEDS: Escitalopram * 20 MG TABLET PO SCH (07:57)
[2018-12-15] MEDS: CMC:Desvenlafaxine (NF) 50 MG TAB PO SCH (07:57)
[2018-12-15] MEDS: Pantoprazole TAB * 40 MG TAB PO SCH (07:57)
[2018-12-15] MEDS: Prazosin CAP* 1 MG PO SCH (07:57)
[2018-12-15] MEDS: Docusate CAP* 100 MG PO SCH (08:20)
[2018-12-15 12:42] VITALS: BP 104/61
--- NOTE | 2018-12-15 20:07 | DS ---
AMENDED REPORT NOW INCLUDES DATE OF ADMISSION AND DISCHARGE CC: Josue Mcneal NP * DISCHARGE SUMMARY/AMA: DATE OF ADMISSION: 12/13/18 DATE OF DISCHARGE/AMA: 12/15/18 FINAL DISCHARGE DIAGNOSES: 1. Pyelonephritis, left sided. 2. Bacteremia secondary to Escherichia coli. 3. Depression. HOSPITAL COURSE: The patient was called back to the hospital on 12/13/18, after her ER blood cultures, which were done on prior presentation, came back positive for E. coli dated 12/12/18, one blood culture and urine culture. At that time, she was called in to return for parenteral antibiotic. At that time , she was discharged with oral Bactrim. The patient was admitted on 12/13/18 and she was seen by me for the initial encounter on 12/14/18. That day around 08:01 a.m., I was called by the staff 3 times stating that the patient wanted to sign against medical advice, complaining that she has no knowledge of why she was admitted and she was not pleased of how she was cared for so far. I did meet with the patient. I had the significant other in the room at bedside, who provided translation and I did go over her clinical course, the treatment, and the decision to admit her for intravenous antibiotic until we have resolution of her blood culture confirmation by repeat blood culture. After about 20 to 25 minutes, she agreed to stay. She remained in the hospital and accepted the treatment course. She remained in the hospital on 12/14/18 and again today on 12/15/18, I was again called by the staff stating that she wants to go against medical advice because she is not happy that she could not smoke. I again, I went out and I saw the patient. Again, I explained to her the risk of leaving at this time, for the second time the risk of . She required IV antibiotic until we have at least confirmed negative blood culture. She declined, she insisted on leaving. Translation was provided by her significant other, who as well seems to be frustrated and despite multiple effort, he could not convince her to stay. Therefore, the patient signed against medical advice form and was released with full knowledge that no prescription was provided by me, giving her AMA form as I am not guarantying that a prescription would suffice unless I was able to confirm that her blood culture should at least be negative for 2 days. With that said, the patient signed the form and she released herself to her custody, condition as guarded. PHYSICAL EXAM: Physical exam which was done earlier revealed temperature 98.3, pulse 76, respiratory 19, blood pressure 104/61. General: She was awake, alert , in no distress she does still have left CVA tenderness. Her cardiovascular S1 , S2. Regular rate and rhythm, non-tachycardic. Her lungs clear to auscultation bilaterally. DISCHARGE MEDICATION: The patient to resume her previous medication as prescribed. No new prescription was provided. INPATIENT DIAGNOSTIC STUDY: So far microbiology repeat culture on 12/13/18 negative for x1 day at the time of discharge. Chemistry: Multiple was significant for hypokalemia 3.4 on admission, today was 3.9. Hyperglycemia, on admission glucose 230, down to 118. CBC: [place] [address], down to 6.8. Hemoglobin from 12.8 down to 11.5, hematocrit from 38 down to 33, platelets from 264 down to 263. DISCHARGE CONDITION: Guarded. DISCHARGE DISPOSITION: Home. [id number]/[facility] #: [id number] [facility]ENTERGalen
== END 2018-12-15 14:00 | disposition left against medical advice (07) | DRG 463 ==
LOC: ED 09:30 → MED 11:11 → OBSVTOIN 12:00 → MED 12:52
PROVIDERS: ADMIT Internal Medicine; ATTEND Internal Medicine
DX: N12 Tubulo-interstitial nephritis, not specified as acute or chronic (principal); R78.81 Bacteremia; B96.20 Unspecified Escherichia coli [E. coli] as the cause of diseases classified elsewhere; F32.9 Major depressive disorder, single episode, unspecified; F17.210 Nicotine dependence, cigarettes, uncomplicated; R73.9 Hyperglycemia, unspecified; Z83.3 Family history of diabetes mellitus; Z88.0 Allergy status to penicillin; Z82.49 Family history of ischemic heart disease and other diseases of the circulatory system; Z72.89 Other problems related to lifestyle
CPT/HCPCS: 36415; 80048; 80053; 80076; 81003; 83605; 83735; 84100; 85025; 85730; 87040; 99283; A9270-GY; J0696; J0744; J1885; J2270; J2405; J3480